=== PATIENT | female | born 1970 | race Caucasian/White ===

== ENCOUNTER 2019-12-28 16:22 | Emergency (ER) | payer OTHER ==
[~2019-12-28] VITALS: Ht 167.6 cm; Wt 62.6 kg
== END 2019-12-28 21:58 | disposition home or self-care (01) ==
LOC: ER 16:22
DX: U07.1 COVID-19 (principal)

== ENCOUNTER 2023-11-20 17:41 | Emergency (ER) | payer OTHER ==
[~2023-11-20] VITALS: Ht 167.6 cm; Wt 62.1 kg
[2023-11-20] MEDS ORDERED: ONDANSETRON HCL 2 MG/ML VIAL IV ONE (19:00)
[2023-11-20] MEDS ORDERED: 0.9 % SODIUM CHLORIDE 1,000 ML IV ONE (19:00)
[2023-11-20] MEDS ORDERED: ACETAMINOPHEN 500 MG GEL..CAP PO ONE (19:00)
[2023-11-20 20:01] LABS: HEMATOCRIT 39.7 % (36.0-45.00); HEMOGLOBIN 13.7 g/dL (12.0-15.00); MEAN CELL VOLUME 87.5 fL (80.00-100.00); MEAN CORPUSCULAR HEMOGLOBIN 30.3 pg (27.00-32.0); MEAN CORPUSCULAR HGB CONC 34.6 g/dl (32.0-36.0); PLATELET COUNT 188 K/uL (150-450); RED BLOOD COUNT 4.53 M/uL (4.00-6.00); RED CELL DISTRIBUTION WIDTH 12.9 % (11.5-14.5)
[2023-11-20 20:20] LABS: ALBUMIN 4.1 gm/dL (3.4-5.0); BILIRUBIN TOTAL 0.47 mg/dL (0.3-1.2); CREATININE SERUM 0.9 mg/dL (0.55-1.02); GFR 65.75; GLOBULINA 4.7 G/DL (2.4-3.5); POTASSIUM 4.35 mEq/L (3.5-5.1); TOTAL PROTEIN 8.8 gm/dL (6.4-8.2)
== END 2023-11-20 22:15 | disposition home or self-care (01) ==
LOC: ER 17:42
PROVIDERS: General Practice
DX: B34.9 Viral infection, unspecified (principal); Z20.822 Contact with and (suspected) exposure to COVID-19